=== PATIENT | female | born 1990 | race Two or more races ===

== ENCOUNTER → 2023-05-08 | Outpatient (CLI) | payer BC ==
[2023-05-08 10:34] LABS: Basophils # (auto) 0 10 ^3/uL (0-0.2); Basophils % (auto) 0.8 % (0.0-2.0); Eosinophils # (auto) 0 10 ^3/uL (0-0.8); Eosinophils % (auto) 1.1 % (0.0-7.0); Hematocrit 43.2 % (36.0-46.0); Hemoglobin 14.1 g/dL (12.2-16.2); Lymphocytes # (auto) 1.4 10 ^3/uL (0.4-5.4); Lymphocytes % (auto) 33.6 % (10.0-50.0); Mean Corpuscular Hemoglobin 30.4 pg (28.0-32.0); Mean Corpuscular Hgb Conc. 32.6 g/dL (32.0-36.0); Mean Corpuscular Volume 93.2 fL (80.0-100.0); Monocytes # (auto) 0.4 10 ^3/uL (0-1.3); Monocytes % (auto) 8.6 % (0.0-12.0); Neutrophils # (auto) 2.3 10 ^3/uL (1.6-8.6); Neutrophils % (auto) 55.9 % (37.0-80.0); Red Blood Cells 4.63 10^6/uL (4.0-5.20); Red Cell Distribution Width 12.6 % (11.8-14.3); White Blood Cell 4.2 10^3/uL (4.4-10.8)
[2023-05-08 10:44] LABS: Urine Bacteria NONE SEEN /hpf (None Seen); Urine Blood TRACE /uL (Negative); Urine Clarity HAZY (Clear); Urine Color Yellow (Yellow); Urine Protein, UAD TRACE (Negative); Urine Specific Gravity 1.019 (1.001-1.035); Urine Urobilinogen Normal (Negative); Urine WBC 1 /hpf (0 - 5); Urine pH 8.5 (5.0-8.0)
[2023-05-08 11:11] LABS: Alanine Aminotransferase 19 U/L (7-40); Alkaline Phosphatase 47 U/L (46-116); Anion Gap 4 (5-15); BUN/Creatinine Ratio 14.5 (10.0-20.0); Blood Urea Nitrogen 9 mg/dL (9-23); CRP High Sensitivity 0.18 mg/dL (<1.0); Calcium 9.3 mg/dL (8.5-10.1); Carbon Dioxide 32 mmol/L (20-30); Chloride 104 mmol/L (98-107); Glucose 78 mg/dL (74-106); Potassium 4.2 mmol/L (3.5-5.1); Sodium 140 mmol/L (136-145); Triglycerides 54 mg/dL (< 150)
[2023-05-08 11:12] LABS: Aspartate Aminotransferase 19 U/L (13-40); LDL Cholesterol 92 mg/dL (< 100)
[2023-05-08 11:13] LABS: Albumin 4.2 g/dL (3.2-4.8); Bilirubin, Total 1.4 mg/dL (0.2-1.0); Cholesterol 178 mg/dL (< 200); HDL Cholesterol 78 mg/dL (40-59); Total Protein 6.5 g/dL (5.7-8.2)
[2023-05-08 11:17] LABS: Erythrocyte Sedimentation Rate 8 mm/hr (0-20)
== END | disposition home or self-care (01) ==
LOC: LAB 09:37
PROVIDERS: ATTEND Internal Medicine
DX: Z00.01 Encounter for general adult medical examination with abnormal findings (principal); R55 Syncope and collapse; F17.200 Nicotine dependence, unspecified, uncomplicated
CPT/HCPCS: 36415; 80053; 80061; 81001; 83036; 84439; 84443; 85025; 85652; 86141

== ENCOUNTER → 2023-05-09 | Outpatient (CLI) | payer BC | END | disposition home or self-care (01) | LOC: XYW 15:48 | PROVIDERS: ATTEND Internal Medicine | DX: R55 Syncope and collapse (principal) | CPT/HCPCS: 93306 ==

== ENCOUNTER → 2023-07-18 | Outpatient (CLI) | payer BC ==
[2023-07-18 09:14] LABS: Basophils # (auto) 0 10 ^3/uL (0-0.2); Basophils % (auto) 0.5 % (0.0-2.0); Eosinophils # (auto) 0 10 ^3/uL (0-0.8); Eosinophils % (auto) 0.5 % (0.0-7.0); Hematocrit 41.3 % (36.0-46.0); Hemoglobin 13.9 g/dL (12.2-16.2); Lymphocytes # (auto) 1.3 10 ^3/uL (0.4-5.4); Lymphocytes % (auto) 17.9 % (10.0-50.0); Mean Corpuscular Hemoglobin 30.8 pg (28.0-32.0); Mean Corpuscular Hgb Conc. 33.6 g/dL (32.0-36.0); Mean Corpuscular Volume 91.6 fL (80.0-100.0); Monocytes # (auto) 0.5 10 ^3/uL (0-1.3); Monocytes % (auto) 6.6 % (0.0-12.0); Neutrophils # (auto) 5.4 10 ^3/uL (1.6-8.6); Neutrophils % (auto) 74.5 % (37.0-80.0); Red Blood Cells 4.51 10^6/uL (4.0-5.20); Red Cell Distribution Width 12.6 % (11.8-14.3); White Blood Cell 7.2 10^3/uL (4.4-10.8)
[2023-07-18 09:49] LABS: Amphetamine Screen, Urine Neg (NEGATIVE); Barbiturate Scree,Urine Neg (NEGATIVE); Cocaine Screen, Urine Neg (NEGATIVE)
[2023-07-18 09:50] LABS: Benzodiazephine Screen, Urine Neg (NEGATIVE); Cannabinoid Screen, Urine Neg (NEGATIVE); Opiate Scree,Urine Neg (NEGATIVE); Phencyclidine Screen, Urine Neg (NEGATIVE)
[2023-07-19 08:07] LABS: RPR Non Reactive (Non Reactive)
[2023-07-19 15:06] LABS: Chlamydia Trachomatis, NAA Negative (Negative); Neisseria gonorrhoeae, NAA Negative (Negative)
[2023-07-20 17:06] LABS: QuantiFERON-TB Gold Plus Negative (Negative)
== END | disposition home or self-care (01) ==
LOC: LAB 08:58
PROVIDERS: ATTEND Obstetrics & Gynecology
DX: Z34.00 Encounter for supervision of normal first pregnancy, unspecified trimester (principal); Z31.430 Encounter of female for testing for genetic disease carrier status for procreative management; Z36.0 Encounter for antenatal screening for chromosomal anomalies; Z3A.00 Weeks of gestation of pregnancy not specified
CPT/HCPCS: 36415; 80307; 83036; 84702; 85025; 86592; 86703; 86762; 86850; 86900; 86901; 87086; 87340

== ENCOUNTER → 2023-11-14 | Outpatient (CLI) | payer BC ==
[2023-11-14 07:34] LABS: Basophils # (auto) 0 10 ^3/uL (0-0.2); Basophils % (auto) 0.3 % (0.0-2.0); Eosinophils # (auto) 0 10 ^3/uL (0-0.8); Eosinophils % (auto) 0.4 % (0.0-7.0); Hematocrit 35.8 % (36.0-46.0); Hemoglobin 12.5 g/dL (12.2-16.2); Lymphocytes # (auto) 1.2 10 ^3/uL (0.4-5.4); Lymphocytes % (auto) 13.2 % (10.0-50.0); Mean Corpuscular Hemoglobin 32.6 pg (28.0-32.0); Mean Corpuscular Hgb Conc. 34.9 g/dL (32.0-36.0); Mean Corpuscular Volume 93.4 fL (80.0-100.0); Monocytes # (auto) 0.7 10 ^3/uL (0-1.3); Neutrophils # (auto) 7.3 10 ^3/uL (1.6-8.6); Neutrophils % (auto) 79.1 % (37.0-80.0); Platelet Count (auto) 146 10^3/uL (140-450); Red Blood Cells 3.84 10^6/uL (4.0-5.20); Red Cell Distribution Width 13.5 % (11.8-14.3); White Blood Cell 9.3 10^3/uL (4.4-10.8)
[2023-11-14 09:26] LABS: Alanine Aminotransferase 18 U/L (7-40); Alkaline Phosphatase 58 U/L (46-116); Anion Gap 6 (5-15); Blood Urea Nitrogen 8 mg/dL (9-23); Calcium 8.9 mg/dL (8.7-10.4); Carbon Dioxide 26 mmol/L (20-30); Chloride 103 mmol/L (98-107); Glucose 81 mg/dL (74-106); Potassium 3.6 mmol/L (3.5-5.1); Sodium 135 mmol/L (136-145)
[2023-11-14 09:27] LABS: Albumin 3.8 g/dL (3.2-4.8); Aspartate Aminotransferase 15 U/L (13-40); Bilirubin, Total 0.6 mg/dL (0.2-1.0); Total Protein 6.1 g/dL (5.7-8.2)
== END | disposition home or self-care (01) ==
LOC: LAB 07:11
PROVIDERS: ATTEND Obstetrics & Gynecology
DX: Z34.00 Encounter for supervision of normal first pregnancy, unspecified trimester (principal); Z3A.00 Weeks of gestation of pregnancy not specified
CPT/HCPCS: 36415; 80053; 82951; 83036; 85025; 87086

== ENCOUNTER → 2024-01-09 | Outpatient (CLI) | payer BC ==
[2024-01-09 12:05] LABS: Urine Bacteria None Seen /hpf (None Seen)
[2024-01-09 12:17] LABS: Hematocrit 34.4 % (36.0-46.0); Hemoglobin 11.6 g/dL (12.2-16.2); Mean Corpuscular Hemoglobin 30.3 pg (28.0-32.0); Mean Corpuscular Hgb Conc. 33.6 g/dL (32.0-36.0); Mean Corpuscular Volume 90.3 fL (80.0-100.0); Platelet Count (auto) 133 10^3/uL (140-450); Red Blood Cells 3.81 10^6/uL (4.0-5.20); Red Cell Distribution Width 14.6 % (11.8-14.3); White Blood Cell 9.2 10^3/uL (4.4-10.8)
[2024-01-09 12:21] LABS: Basophils % (manual) 0 (0.0-2.0); Blast Cells 0; Eosinophils % (manual) 0 (0-7); Metamyelocytes % 0; Myelocytes % 0; Promyelocytes % 0; Reactive Lymphocytes 0
[2024-01-09 12:34] LABS: Band Neutrophils % (manual) 5; Lymphocytes % (manual) 17 (10.0-50.0); Monocytes % (manual) 2 (0-12); Platelet Estimate Decreased
[2024-01-09 13:05] LABS: Urine Blood Negative /uL (Negative); Urine Clarity Clear (Clear); Urine Color Colorless (Yellow); Urine Protein, UAD Negative (Negative); Urine Specific Gravity 1.002 (1.001-1.035); Urine Urobilinogen Normal (Negative); Urine WBC <1 /hpf (0 - 5); Urine pH 6.5 (5.0-9.0)
[2024-01-10 07:07] LABS: RPR Non Reactive (Non Reactive)
[2024-01-11 06:07] LABS: Chlamydia Trachomatis, NAA Negative (Negative); Neisseria gonorrhoeae, NAA Negative (Negative)
== END | disposition home or self-care (01) ==
LOC: LAB 11:34
PROVIDERS: ATTEND Obstetrics & Gynecology
DX: Z34.00 Encounter for supervision of normal first pregnancy, unspecified trimester (principal)
CPT/HCPCS: 36415; 81001; 85007; 85027; 86592; 87086

== ENCOUNTER → 2024-01-16 | Outpatient (CLI) | payer BC ==
[2024-01-16 10:35] LABS: Alanine Aminotransferase 18 U/L (7-40); Albumin 3.6 g/dL (3.2-4.8); Alkaline Phosphatase 85 U/L (46-116); Anion Gap 8 (5-15); Aspartate Aminotransferase 15 U/L (13-40); Calcium 9.3 mg/dL (8.7-10.4); Carbon Dioxide 25 mmol/L (20-31); Chloride 105 mmol/L (98-107); Glucose 94 mg/dL (74-106); Potassium 3.5 mmol/L (3.5-5.1); Sodium 138 mmol/L (136-145)
[2024-01-16 10:36] LABS: Bilirubin, Total 0.5 mg/dL (0.2-1.0)
[2024-01-16 10:37] LABS: BUN/Creatinine Ratio 10.6 (10.0-20.0); Blood Urea Nitrogen < 5 mg/dL (9-23)
[2024-01-16 11:55] LABS: Total Protein 5.8 g/dL (5.7-8.2)
== END | disposition home or self-care (01) ==
LOC: LAB 09:53
PROVIDERS: ATTEND Obstetrics & Gynecology
DX: Z12.4 Encounter for screening for malignant neoplasm of cervix (principal); Z79.899 Other long term (current) drug therapy
CPT/HCPCS: 36415; 80053; 82306

== ENCOUNTER 2024-01-30 18:06 | Observation (INO) | payer BC ==
[~2024-01-30] VITALS: Ht 167.6 cm; Wt 92.5 kg
[2024-01-30] MEDS: ONDANSETRON HCL 4 MG/2 ML VIAL IV PRN (18:51)
[2024-01-30 19:17] LABS: Basophils # (auto) 0 10 ^3/uL (0-0.2); Basophils % (auto) 0.4 % (0.0-2.0); Eosinophils # (auto) 0 10 ^3/uL (0-0.8); Eosinophils % (auto) 0.1 % (0.0-7.0); Hematocrit 37.8 % (36.0-46.0); Hemoglobin 12.4 g/dL (12.2-16.2); Lymphocytes # (auto) 0.3 10 ^3/uL (0.4-5.4); Mean Corpuscular Hemoglobin 29.2 pg (28.0-32.0); Mean Corpuscular Volume 88.5 fL (80.0-100.0); Monocytes # (auto) 0.3 10 ^3/uL (0-1.3); Monocytes % (auto) 2.7 % (0.0-12.0); Neutrophils # (auto) 10.2 10 ^3/uL (1.6-8.6); Neutrophils % (auto) 93.8 % (37.0-80.0); Platelet Count (auto) 138 10^3/uL (140-450); Red Blood Cells 4.27 10^6/uL (4.0-5.20); Red Cell Distribution Width 15.8 % (11.8-14.3); White Blood Cell 10.9 10^3/uL (4.4-10.8)
[2024-01-30] MEDS: LACTATED RINGER'S 1,000 ML IV SCH (19:31)
[2024-01-30 19:35] LABS: Alanine Aminotransferase 15 U/L (7-40); Albumin 3.8 g/dL (3.2-4.8); Alkaline Phosphatase 93 U/L (46-116); Anion Gap 12 (5-15); Aspartate Aminotransferase 19 U/L (13-40); BUN/Creatinine Ratio 21.4 (10.0-20.0); Bilirubin, Total 1.1 mg/dL (0.2-1.0); Blood Urea Nitrogen 9 mg/dL (9-23); Calcium 9.2 mg/dL (8.7-10.4); Carbon Dioxide 22 mmol/L (20-31); Chloride 102 mmol/L (98-107); Glucose 89 mg/dL (74-106); Potassium 3.7 mmol/L (3.5-5.1)
[2024-01-30 19:44] LABS: Sodium 136 mmol/L (136-145)
--- NOTE | 2024-01-30 19:57 | DVH ---
OB ULTRASOUND, LIMITED CLINICAL INDICATION: labor TECHNIQUE: Multiple grayscale ultrasound and M-mode images were obtained of the pelvis for evaluation of intrauterine . COMPARISON: None FINDINGS: Profile: 06/04 breathin movements: 0 tone: 0 Amniotic fluid: 2 SANDEEP 15.2 cm heart rate 173 beats per minute Placenta anterior grade 1 without evidence of abruption. No nuchal cord. position vertex IMPRESSION: 1. Biophysical profile 06/04, with 0 score for movements and tone 2. Single living intrauterine . heart rate is 173 beats per minute
[2024-01-30] MEDS: ACETAMINOPHEN 500 MG TAB PO ONE (20:02)
[2024-01-30 20:24] LABS: INR 0.95 (0.9-1.15); Partial Thromboplastin Time 25.8 SEC (24.5-34.5); Prothrombin Time 10.1 sec (9.3-11.8)
[2024-01-30 20:24] LABS: Rapid Influenza A Negative (Negative); Rapid Influenza B Negative (Negative)
[2024-01-30] MEDS: LACTATED RINGER'S 1,000 ML IV ONE (20:53)
[2024-01-30 21:02] LABS: Urine Bacteria None Seen /hpf (None Seen)
[2024-01-30 21:52] LABS: Urine Blood Negative /uL (Negative); Urine Clarity Clear (Clear); Urine Color Yellow (Yellow); Urine Mucus FEW (None Seen); Urine Protein, UAD 1+ (Negative); Urine Specific Gravity 1.028 (1.001-1.035); Urine Urobilinogen Normal (Negative); Urine WBC 2 /hpf (0 - 5); Urine pH 5.5 (5.0-9.0)
[2024-01-30 22:11] LABS: COVID19 ANTIGEN SOFIA FIA NEGATIVE (NEGATIVE)
--- NOTE | 2024-01-30 23:51 | DVH ---
BIOPHYSICAL PROFILE HISTORY: repeat for 06/04 BPP score Comparison Study: 01/30/24 TECHNIQUE: Multiple real-time grayscale sonographic images through the gravid uterus of the fetus wi th duplex Doppler color flow and M-mode spectral analysis FINDINGS: BIOPHYSICAL PROFILE: breathing score: 2 movement score: 2 tone score: 2 Quantitative SANDEEP score: 2 (SANDEEP: 17.7 Cm.) Total score: 8 The cervix closed Single live fetus in vertex presentation. heart rate 180 beats per minute. placenta without previa or abruption Biophysical profile score 8 IMPRESSION: 1. Biophysical profile score: 8 2. No acute findings identified
[2024-01-31] MEDS ORDERED: ACETAMINOPHEN 500 MG TAB PO ONE (02:10)
--- NOTE | 2024-01-31 07:49 | DVHDS2 ---
Physician Discharge Progress N Final Diagnosis: vomiting ,nausea suspect food poisining dehydration resolved Secondary Diagnosis: pt wants to go home feeling much better insists going home Operations or Procedures: Operations or Procedures iv fluid,labs,flu test and covid testing initial bpp abn due to vomiting/food poisining and dehyrtaion but repeat bpp nl after hydration Condition on Discharge: Good Disposition: Home Discharge Instructions: Diet: Consistent carbohydrate Activity: No Restrictions, As Tolerated Follow Up/Referral: PT states she will see Dr. Hutchins today on 01/31/24. Medications: na Follow Up Care: Specialist: fu in am Discharge Statement: "Patient was advised to return to the ER or call 911 if any headaches, dizziness, shortness of breath, chest pain, abdominal pain, bleeding, fevers, or worsening of medical condition. Patient was counseled about treatment plan, medications, possible side effects, patientverbalized understanding. All questions were answered to the best of my ability. This discharge took greater then 30 minutes in planning, reviewing documentat ion, counseling the patient, and discussing with other team members." NORMA HUTCHINS DO Jan 31, 2024 07:49
== END 2024-01-31 02:05 | disposition home or self-care (01) ==
LOC: LDRP 18:06
PROVIDERS: ADMIT Obstetrics & Gynecology; ATTEND Obstetrics & Gynecology
DX: O21.8 Other vomiting complicating pregnancy (principal); Z20.822 Contact with and (suspected) exposure to COVID-19; O26.893 Other specified pregnancy related conditions, third trimester; R50.9 Fever, unspecified; Z3A.38 38 weeks gestation of pregnancy; Z79.899 Other long term (current) drug therapy; Z86.2 Personal history of diseases of the blood and blood-forming organs and certain disorders involving the immune mechanism
CPT/HCPCS: 36415; 59025; 76818; 80053; 81001; 81002; 85025; 85610; 85730; 86850; 86900; 86901; 87426; 87804; 94760; 94762; 96361; 96374; G0378; J2405; 96365; 96366

== ENCOUNTER 2024-02-06 08:18 | Inpatient (IN) | payer BC ==
[~2024-02-06] VITALS: Ht 167.6 cm; Wt 89.8 kg
[2024-02-06] MEDS ORDERED: DERMOPLAST 60ML BOTTLE TOP PRN (08:30)
[2024-02-06] MEDS ORDERED: BUTORPHANOL TARTRATE 2 MG/1 ML VIAL IV PRN ×2 (08:30)
[2024-02-06] MEDS ORDERED: LIDOCAINE 2%HCL (LOCAL ANESTH.) INJ 20ML MDV IJ PRN (08:30)
[2024-02-06] MEDS ORDERED: WITCH HAZEL-GLYCERIN PAD TOP PRN (08:30)
[2024-02-06] MEDS ORDERED: LACT. RINGERS/OXYTOCIN 20UNITS 500 ML IV ONE ×2 (08:30→09:00)
[2024-02-06] MEDS ORDERED: PHISODERM TOP SOLN 240ML BTL TOP PRN (08:30)
[2024-02-06 09:05] LABS: Basophils # (auto) 0 10 ^3/uL (0-0.2); Basophils % (auto) 0.3 % (0.0-2.0); Eosinophils # (auto) 0 10 ^3/uL (0-0.8); Eosinophils % (auto) 0.4 % (0.0-7.0); Hematocrit 35.1 % (36.0-46.0); Hemoglobin 11.8 g/dL (12.2-16.2); Lymphocytes # (auto) 1.3 10 ^3/uL (0.4-5.4); Lymphocytes % (auto) 13.6 % (10.0-50.0); Mean Corpuscular Hemoglobin 29.6 pg (28.0-32.0); Mean Corpuscular Hgb Conc. 33.6 g/dL (32.0-36.0); Monocytes # (auto) 0.5 10 ^3/uL (0-1.3); Monocytes % (auto) 5.1 % (0.0-12.0); Neutrophils # (auto) 7.5 10 ^3/uL (1.6-8.6); Neutrophils % (auto) 80.6 % (37.0-80.0); Nucleated Red Blood Cells % 0.1 %; Platelet Count (auto) 147 10^3/uL (140-450); Red Blood Cells 3.99 10^6/uL (4.0-5.20); White Blood Cell 9.3 10^3/uL (4.4-10.8)
[2024-02-06 09:06] LABS: Urine Bacteria None Seen /hpf (None Seen)
[2024-02-06 09:17] LABS: INR 0.96 (0.9-1.15); Prothrombin Time 10.2 sec (9.3-11.8)
[2024-02-06 09:17] LABS: Urine Blood Negative /uL (Negative); Urine Clarity Clear (Clear); Urine Color Light-Yellow (Yellow); Urine Protein, UAD Negative (Negative); Urine Urobilinogen Normal (Negative); Urine WBC <1 /hpf (0 - 5); Urine pH 6.5 (5.0-9.0)
[2024-02-06 09:18] LABS: Alanine Aminotransferase 34 U/L (7-40); Albumin 3.5 g/dL (3.2-4.8); Alkaline Phosphatase 89 U/L (46-116); Anion Gap 8 (5-15); Aspartate Aminotransferase 30 U/L (13-40); BUN/Creatinine Ratio 11.5 (10.0-20.0); Bilirubin, Total 0.6 mg/dL (0.2-1.0); Calcium 9.4 mg/dL (8.7-10.4); Carbon Dioxide 24 mmol/L (20-31); Chloride 105 mmol/L (98-107); Potassium 3.8 mmol/L (3.5-5.1); Sodium 137 mmol/L (136-145); Total Protein 5.7 g/dL (5.7-8.2)
[2024-02-06 09:20] LABS: Blood Urea Nitrogen 6 mg/dL (9-23); Glucose 115 mg/dL (74-106)
[2024-02-06 09:26] LABS: Amphetamine Screen, Urine Neg (NEGATIVE); Barbiturate Scree,Urine Neg (NEGATIVE); Benzodiazephine Screen, Urine Neg (NEGATIVE); Cannabinoid Screen, Urine Neg (NEGATIVE); Cocaine Screen, Urine Neg (NEGATIVE); Opiate Scree,Urine Neg (NEGATIVE); Phencyclidine Screen, Urine Neg (NEGATIVE)
[2024-02-06] MEDS: miSOPROStol 50 MCG per PRE-CUT 1/2 TAB PO PRN (09:36)
[2024-02-06] MEDS: LACTATED RINGER'S 1,000 ML IV SCH (09:37)
--- NOTE | 2024-02-06 12:57 | DVHPN2 ---
Chief Complaints Patient reports: No new complaints Nursing reports: No new complaints Objective Medications Current Medications Medications (Trade) Dose Ordered Sig/Cirilo Route PRN Reason Start Time Stop Time Status Last Admin Benzocaine (Dermoplast) 1 applic PRN PRN TOP PERINEAL AREA DISCOMFORT 02/06/24 08:30 Butorphanol Tartrate (Stadol Injection) 1 mg Q4HPRN PRN IV MODERATE PAIN (4-6 PAIN SCALE) 02/06/24 08:30 Butorphanol Tartrate (Stadol Injection) 2 mg Q4HPRN PRN IV SEVERE PAIN (7-10 PAIN SCALE) 02/06/24 08:30 Lactated Ringer's 1,000 ml @ 125 mls/hr Q8H IV 02/06/24 08:30 02/06/24 09:37 Lidocaine HCl (Xylocaine) 20 ml ONCE PRN IJ PERINEAL AREA DISCOMFORT 02/06/24 08:30 Misoprostol (Cytotec) 50 mcg Q4HPRN PRN PO CERVICAL RIPENING 02/06/24 08:30 02/06/24 09:36 Sodium Lauryl Sulfate (Phisoderm) 240 ml PRN PRN TOP PERINEAL AREA DISCOMFORT 02/06/24 08:30 Witch Florecita (Tucks) 1 pad PRN PRN TOP PERINEAL AREA DISCOMFORT 02/06/24 08:30 Others ve-ft/high/thick Studies Laboratory Tests 02/06/24 08:37 Test 02/06/24 08:37 Range/Units Serum Glucose 115 H 74-106 mg/dL Ass/Plan Assessment iol Plan rec one cytotec informed consent obtained NORMA GUNN DO Feb 06, 2024 12:57
--- NOTE | 2024-02-06 15:32 | DVHHP2 ---
OB CC & HPI Date Date of Admission: Feb 06, 2024 Patient Identification: : 1 Para: 0 EDC: Feb 11, 2024 EGA: 39.2 Chief Complaints: Reason for admission: induction of labor Indication for induction: maternal discomfort, other (elective) History of Present Complaints 33yo IUP@39.2wks presents for scheduled IOL. Denies UCs/LOF/VB/LAWSON/vision changes/RUQ pain. Endorses +FM. PNC: Routine PNC at [facility] OB, adequate visits, PNC uncomplicated. GTT wnl, dating based on LMP c/w 10wk sono, GBS positive. Past Medical History Cardiac: No pertinent Hx Pulmonary: No pertinent Hx Central Nervous System: No pertinent Hx GI: No pertinent Hx Hemotology/Oncology: No pertinent Hx Hepatobiliary: No pertinent Hx Psychiatric: No pertinent Hx Musculoskeletal: No pertinent Hx Rheumotologic: No pertinent Hx Infectious Disease: No peritnent Hx ENT: No pertinent Hx Renal/: No pertinent Hx Endocrine: No pertinent Hx Dermatology: No pertinent Hx Past Surgical History: No pertinent Hx OB History OB History Care: Good Care Ultrasounds: Normal mid trimester US Obstetrical Complications: None Medical Complications: None Allergies: Coded Allergies: NO KNOWN ALLERGIES (Unverified , 01/30/24) Home Meds PNV Current Medications Current Medications Medications (Trade) Dose Ordered Sig/Cirilo Route PRN Reason Start Time Stop Time Status Last Admin Lactated Ringer's 1,000 ml @ 125 mls/hr Q8H IV 02/06/24 08:30 02/06/24 09:37 Witch Florecita (Tucks) 1 pad PRN PRN TOP PERINEAL AREA DISCOMFORT 02/06/24 08:30 Sodium Lauryl Sulfate (Phisoderm) 240 ml PRN PRN TOP PERINEAL AREA DISCOMFORT 02/06/24 08:30 Benzocaine (Dermoplast) 1 applic PRN PRN TOP PERINEAL AREA DISCOMFORT 02/06/24 08:30 Butorphanol Tartrate (Stadol Injection) 1 mg Q4HPRN PRN IV MODERATE PAIN (4-6 PAIN SCALE) 02/06/24 08:30 Butorphanol Tartrate (Stadol Injection) 2 mg Q4HPRN PRN IV SEVERE PAIN (7-10 PAIN SCALE) 02/06/24 08:30 Misoprostol (Cytotec) 50 mcg Q4HPRN PRN PO CERVICAL RIPENING 02/06/24 08:30 02/06/24 09:36 Lidocaine HCl (Xylocaine) 20 ml ONCE PRN IJ PERINEAL AREA DISCOMFORT 02/06/24 08:30 Family & Social History Family/Social History Past Family/Social History: denies Blood Type: O+ Rubella: immune RPR/VDRL: Negative GBS Status: Positive HBsAG: Negative Review of Systems Constitutional: No symptom reported Ears, Nose, & Throat: No symptom reported Eyes: No symptom reported Pulmonary/Respiratory: No symptom reported Cardiovascular: No symptom reported Gastrointestinal: No symptom reported Genitourinary: No symptom reported Musculoskeletal: No symptom reported Skin: No symptom reported Psychiatric: No symptom reported Endocrine: No symptom reported Hemotologic/Lymphatic: No symptom reported OB Admission Exam Physical Exam Vitals: VSS, see chart HEENT: TMs Normal, Fontanelles Normal, Nasal Mucosa Normal, Eyes non-injected, Oropharynx Normal, PERRLA, Moist Membranes, EOMI Heart: Rhythm Normal Lungs: Clear Abdomen: Gravid Extremities: Normal Reflexes: Normal Pelvic Exam: SVE by RN: closed/thick/high Membranes: Intact Heart Rate: 140's Accelerations: Accelerations Present Decelerations: No Decelerations Group Home Variability: Average (6-25) Frequency of Contractions: irregular Intensity: Mild OB Plan Plan Admitting Diagnosis: Induction of labor Plan: Induction Induction Methd: Misoprostol protocol Other Plan: A: 33yo IUP@39.2wks Induction of Labor Category I EFM Intact Membranes GBS positive P: Admit to L&D Informed consent obtained Discussed risks, benefits, alternatives of IOL with pt. Pt consents to IOL with PO cytotec. Start IV PCN when in active labor or ROM. monitoring per order Routine labs ordered Pain mgmt PRN Frequent position changes in and out of bed encouraged Limit SVE unless necessary Intrauterine resuscitation PRN Anticipate CNGriselda is co-managing care with Dr. Hutchins. CLAYTON GUNN CNM Feb 06, 2024 15:32
--- NOTE | 2024-02-06 15:47 | DVHPN2 ---
Chief Complaints Patient reports: No new complaints Nursing reports: No new complaints Objective Medications Current Medications Medications (Trade) Dose Ordered Sig/Cirilo Route PRN Reason Start Time Stop Time Status Last Admin Benzocaine (Dermoplast) 1 applic PRN PRN TOP PERINEAL AREA DISCOMFORT 02/06/24 08:30 Butorphanol Tartrate (Stadol Injection) 1 mg Q4HPRN PRN IV MODERATE PAIN (4-6 PAIN SCALE) 02/06/24 08:30 Butorphanol Tartrate (Stadol Injection) 2 mg Q4HPRN PRN IV SEVERE PAIN (7-10 PAIN SCALE) 02/06/24 08:30 Lactated Ringer's 1,000 ml @ 125 mls/hr Q8H IV 02/06/24 08:30 02/06/24 09:37 Lidocaine HCl (Xylocaine) 20 ml ONCE PRN IJ PERINEAL AREA DISCOMFORT 02/06/24 08:30 Misoprostol (Cytotec) 50 mcg Q4HPRN PRN PO CERVICAL RIPENING 02/06/24 08:30 02/06/24 09:36 Sodium Lauryl Sulfate (Phisoderm) 240 ml PRN PRN TOP PERINEAL AREA DISCOMFORT 02/06/24 08:30 Witch Florecita (Tucks) 1 pad PRN PRN TOP PERINEAL AREA DISCOMFORT 02/06/24 08:30 Others ve-unchanged Studies Laboratory Tests 02/06/24 08:37 Test 02/06/24 08:37 Range/Units Serum Glucose 115 H 74-106 mg/dL Ass/Plan Assessment iol Plan rec 2 cytotec NORMA GUNN DO Feb 06, 2024 15:47
[2024-02-06] MEDS: DINOPROSTONE 10MG VAG SUPP PV ONE (18:03)
--- NOTE | 2024-02-06 18:35 | DVHPN2 ---
CNM Labor Progress Note Date and Time Seen Date Seen: Feb 06, 2024 Time Seen: 17:58 Subjective Patient reports: No new complaints Subjective Comment Pt denies pain, does not feel the UCs, only abdominal tightening. Pt consents to cervidil. Objective Vital Signs VSS, see chart Monitoring Method Monitoring Method: External Heart Rate Heart Rate Baseline: 130 Heart Rate Variability: Moderate Presence of FHR Accelerations: Yes Presence of FHR Decelerations: No Are all 5 Components of the FH: Yes Contractions Contractions Frequency: Other (q2-3 min) Duration of Contraction: 70 Contractions Intensity: Mild Contractions Resting Tone: Relaxed Membranes Membranes: Intact Vaginal Exam Vag Exam Deferred: No (cervidil placed horizontally at the posterior fornix of the cervix) Vaginal Exam Dilation: 0 Vaginal Exam Effacement: 0 Vaginal Exam Station: -2 Vaginal Exam Presentation: VTX Vaginal Exam Show: None Medications Medications - Pitocin: No Medications - Pain Medications: PRN Medication - Epidural: No Medication - Other 1 dose of PO cytotec received Lab Results Lab Results Current Medications Medications (Trade) Dose Ordered Sig/Cirilo Start Time Stop Time Status Last Admin Dose Admin Lactated Ringer's 1,000 ml @ 125 mls/hr Q8H 02/06/24 08:30 02/06/24 09:37 125 MLS/HR Witch Florecita (Tucks) 1 pad PRN PRN 02/06/24 08:30 Sodium Lauryl Sulfate (Phisoderm) 240 ml PRN PRN 02/06/24 08:30 Benzocaine (Dermoplast) 1 applic PRN PRN 02/06/24 08:30 Butorphanol Tartrate (Stadol Injection) 1 mg Q4HPRN PRN 02/06/24 08:30 Butorphanol Tartrate (Stadol Injection) 2 mg Q4HPRN PRN 02/06/24 08:30 Misoprostol (Cytotec) 50 mcg Q4HPRN PRN 02/06/24 08:30 02/06/24 09:36 50 MCG Lidocaine HCl (Xylocaine) 20 ml ONCE PRN 02/06/24 08:30 Oxytocin 500 ml @ 999 mls/hr Q31M ONCE 02/06/24 08:30 02/06/24 09:00 DC Oxytocin 500 ml @ 125 mls/hr Q4H ONCE 02/06/24 09:00 02/06/24 12:59 DC Dinoprostone (Cervidil Suppository) 1 supp ONCE ONCE 02/06/24 16:45 02/06/24 17:32 DC 02/06/24 18:03 1 SUPP Polyethylene Glycol (Miralax 17GM Powder) 17 gm DAILYPRN PRN 02/06/24 22:45 UNV Docusate Sodium (Colace Capsule) 200 mg DAILYPRN PRN 02/06/24 22:45 UNV Laboratory Tests Test 02/06/24 09:37 02/06/24 08:45 02/06/24 08:37 Range/Units Treponema pallidum Ab (TP-PA) Pending Urine Color Light-yellow Yellow Urine Clarity Clear Clear Urine pH 6.5 5.0-9.0 Urine Specific [place] 1.010 1.001-1.035 Urine Protein Negative Negative Urine Ketones Negative Negative Urine Blood Negative Negative /uL Urine Nitrite Negative Negative Urine Bilirubin Negative Negative Urine Urobilinogen Normal Negative mg/dL Urine Leukocyte Esterase Negative Negative /uL Urine RBC <1 0 - 4 /hpf Urine WBC <1 0 - 5 /hpf Urine Squamous Epithelial Cells Few <5 /hpf Urine Bacteria None seen None Seen /hpf Urine Glucose Normal Normal mg/dL Urine Opiates Screen Neg NEGATIVE Urine Fentanyl Screen Neg NEGATIVE Urine Barbiturates Screen Neg NEGATIVE Urine Phencyclidine Screen Neg NEGATIVE Urine Amphetamines Screen Neg NEGATIVE Urine Benzodiazepines Screen Neg NEGATIVE Urine Cocaine Screen Neg NEGATIVE Urine Cannabinoids Screen Neg NEGATIVE White Blood Count 9.3 4.4-10.8 10^3/uL Red Blood Count 3.99 L 4.0-5.20 10^6/uL Hemoglobin 11.8 L 12.2-16.2 g/dL Hematocrit 35.1 L 36.0-46.0 % Mean Corpuscular Volume 88.0 80.0-100.0 fL Mean Corpuscular Hemoglobin 29.6 28.0-32.0 pg Mean Corpuscular Hemoglobin Concent 33.6 32.0-36.0 g/dL Red Cell Distribution Width 16.0 H 11.8-14.3 % Platelet Count 147 140-450 10^3/uL Mean Platelet Volume 9.0 6.9-10.8 fL Neutrophils (%) (Auto) 80.6 H 37.0-80.0 % Lymphocytes (%) (Auto) 13.6 10.0-50.0 % Monocytes (%) (Auto) 5.1 0.0-12.0 % Eosinophils (%) (Auto) 0.4 0.0-7.0 % Basophils (%) (Auto) 0.3 0.0-2.0 % Neutrophils # (Auto) 7.5 1.6-8.6 10 ^3/uL Lymphocytes # (Auto) 1.3 0.4-5.4 10 ^3/uL Monocytes # (Auto) 0.5 0-1.3 10 ^3/uL Eosinophils # (Auto) 0 0-0.8 10 ^3/uL Basophils # (Auto) 0 0-0.2 10 ^3/uL Nucleated Red Blood Cells 0.1 % Prothrombin Time 10.2 9.3-11.8 sec Prothrombin Time INR 0.96 0.9-1.15 Activated Partial Thromboplast Time 26.0 24.5-34.5 SEC Sodium Level 137 136-145 mmol/L Potassium Level 3.8 3.5-5.1 mmol/L Chloride Level 105 98-107 mmol/L Carbon Dioxide Level 24 20-31 mmol/L Anion Gap 8 5-15 Blood Urea Nitrogen 6 L 9-23 mg/dL Creatinine 0.52 L 0.550-1.02 mg/dL Glomerular Filtration Rate Calc 126 >90 mL/min BUN/Creatinine Ratio 11.5 10.0-20.0 Serum Glucose 115 H 74-106 mg/dL Calcium Level 9.4 8.7-10.4 mg/dL Total Bilirubin 0.6 0.2-1.0 mg/dL Aspartate Amino Transferase (AST) 30 13-40 U/L Alanine Aminotransferase (ALT) 34 7-40 U/L Alkaline Phosphatase 89 46-116 U/L Total Protein 5.7 5.7-8.2 g/dL Albumin 3.5 3.2-4.8 g/dL Rapid Plasma Reagin Pending Hepatitis C Antibody Negative Negative Assessment Assessment 33yo IUP@39.2wks Induction of Labor Category I EFM Intact Membranes GBS positive Plan Plan Plan to keep cervidil in place for 12 hours unless tachysystole or distress Start IV PCN when in active labor or ROM. monitoring per order Pain mgmt PRN Frequent position changes in and out of bed encouraged Limit SVE unless necessary Intrauterine resuscitation PRN Anticipate ROXI is co-managing care with Dr. Hutchins. Plan discussed with: Patient JUANRAMONACLAYTON DIANE Feb 06, 2024 18:35
[2024-02-06] MEDS: POLYETHYLENE GLYCOL 17 GM PWDR PO PRN (23:02)
--- NOTE | 2024-02-07 01:55 | DVHPN2 ---
Chief Complaints Patient reports: No new complaints Nursing reports: No new complaints Objective Vitals VSS Medications Current Medications Medications (Trade) Dose Ordered Sig/Cirilo Route PRN Reason Start Time Stop Time Status Last Admin Benzocaine (Dermoplast) 1 applic PRN PRN TOP PERINEAL AREA DISCOMFORT 02/06/24 08:30 Butorphanol Tartrate (Stadol Injection) 1 mg Q4HPRN PRN IV MODERATE PAIN (4-6 PAIN SCALE) 02/06/24 08:30 Butorphanol Tartrate (Stadol Injection) 2 mg Q4HPRN PRN IV SEVERE PAIN (7-10 PAIN SCALE) 02/06/24 08:30 Docusate Sodium (Colace Capsule) 200 mg DAILYPRN PRN PO FOR CONSTIPATION 02/06/24 22:45 Lactated Ringer's 1,000 ml @ 125 mls/hr Q8H IV 02/06/24 08:30 02/06/24 09:37 Lidocaine HCl (Xylocaine) 20 ml ONCE PRN IJ PERINEAL AREA DISCOMFORT 02/06/24 08:30 Misoprostol (Cytotec) 50 mcg Q4HPRN PRN PO CERVICAL RIPENING 02/06/24 08:30 02/06/24 09:36 Polyethylene Glycol (Miralax 17GM Powder) 17 gm DAILYPRN PRN PO FOR CONSTIPATION 02/06/24 22:45 02/06/24 23:02 Sodium Lauryl Sulfate (Phisoderm) 240 ml PRN PRN TOP PERINEAL AREA DISCOMFORT 02/06/24 08:30 Witch Florecita (Tucks) 1 pad PRN PRN TOP PERINEAL AREA DISCOMFORT 02/06/24 08:30 Comment Cervidil still in place from 1758 Category I EFM (FHR 120s, moderate variability, +accels, -decels) UCs q2-4 min Studies Laboratory Tests 02/06/24 08:37 Test 02/06/24 08:37 Range/Units Serum Glucose 115 H 74-106 mg/dL Ass/Plan Assessment IOL Plan Continue with cervidil, plan to remove at 12 hours (0558) CLAYTON GUNN CNM Feb 07, 2024 01:55
[2024-02-07] MEDS: DOCUSATE SOD 100 MG CAP PO PRN (05:17)
[2024-02-07] MEDS ORDERED: METHYLERGONOVINE MALEATE 0.2 MG/ML AMP IM PRN (06:30)
[2024-02-07] MEDS ORDERED: LACT. RINGERS/OXYTOCIN 20UNITS 500 ML IV ONE ×2 (06:30→07:00)
--- NOTE | 2024-02-07 07:55 | DVHPN2 ---
Chief Complaints Patient reports: No new complaints Nursing reports: No new complaints Objective Medications Current Medications Medications (Trade) Dose Ordered Sig/Cirilo Route PRN Reason Start Time Stop Time Status Last Admin Benzocaine (Dermoplast) 1 applic PRN PRN TOP PERINEAL AREA DISCOMFORT 02/06/24 08:30 Butorphanol Tartrate (Stadol Injection) 1 mg Q4HPRN PRN IV MODERATE PAIN (4-6 PAIN SCALE) 02/06/24 08:30 Butorphanol Tartrate (Stadol Injection) 2 mg Q4HPRN PRN IV SEVERE PAIN (7-10 PAIN SCALE) 02/06/24 08:30 Docusate Sodium (Colace Capsule) 200 mg DAILYPRN PRN PO FOR CONSTIPATION 02/06/24 22:45 02/07/24 05:17 Lactated Ringer's 1,000 ml @ 125 mls/hr Q8H IV 02/06/24 08:30 02/06/24 09:37 Lidocaine HCl (Xylocaine) 20 ml ONCE PRN IJ PERINEAL AREA DISCOMFORT 02/06/24 08:30 Methylergonovine Maleate (Methergine) 0.2 mg Q8HP PRN IM POST HEMORRHAGE 02/07/24 06:30 02/09/24 06:29 Misoprostol (Cytotec) 50 mcg Q4HPRN PRN PO CERVICAL RIPENING 02/06/24 08:30 02/06/24 09:36 Polyethylene Glycol (Miralax 17GM Powder) 17 gm DAILYPRN PRN PO FOR CONSTIPATION 02/06/24 22:45 02/06/24 23:02 Sodium Lauryl Sulfate (Phisoderm) 240 ml PRN PRN TOP PERINEAL AREA DISCOMFORT 02/06/24 08:30 Witch Florecita (Tucks) 1 pad PRN PRN TOP PERINEAL AREA DISCOMFORT 02/06/24 08:30 Others ve- refused Studies Laboratory Tests 02/06/24 08:37 Test 02/06/24 08:37 Range/Units Serum Glucose 115 H 74-106 mg/dL Ass/Plan Assessment iol Plan pt declined continuing with induction pt wants to go home they refused monitoring ,will need nst/bpp on monday NORMA GUNN Feb 07, 2024 07:55
--- NOTE | 2024-02-07 07:56 | DVHDS2 ---
Physician Discharge Progress N Final Diagnosis: term preg declined induction Operations or Procedures: Operations or Procedures pt wants to be dc home Condition on Discharge: Good Disposition: Home Discharge Instructions: Diet: Regular Activity: No Restrictions, As Tolerated Follow Up/Referral: RETURN TO BIRTHPLACE ON 02/11/24 @ 1000 AM FOR NST/BPP Medications: na Follow Up Care: Specialist: fu on monday Discharge Statement: "Patient was advised to return to the ER or call 911 if any headaches, dizziness, shortness of breath, chest pain, abdominal pain, bleeding, fevers, or worsening of medical condition. Patient was counseled about treatment plan, medications, possible side effects, patientverbalized understanding. All questions were answered to the best of my ability. This discharge took greater then 30 minutes in planning, reviewing documentation, counseling the patient, and discussing with other team members." NORMA GUNN DO Feb 07, 2024 07:56
[2024-02-07 08:06] LABS: RPR Non Reactive (Non Reactive)
== END 2024-02-07 07:23 | disposition home or self-care (01) | DRG 833 ==
LOC: LDRP 08:18
PROVIDERS: ADMIT Obstetrics & Gynecology; ATTEND Obstetrics & Gynecology
DX: O99.820 Streptococcus B carrier state complicating pregnancy (principal); Z3A.39 39 weeks gestation of pregnancy
CPT/HCPCS: 36415; 59025; 80053; 80307; 81001; 85025; 85610; 85730; 86592; 86780; 86803; 86850; 86900; 86901; 94762; 96360; 96361; G0378

== ENCOUNTER 2024-02-11 09:56 | Observation (INO) | payer BC ==
--- NOTE | 2024-02-11 11:17 | DVH ---
CLINICAL HISTORY: Term . COMPARISON: US BIOPHYSICAL PROFILE on DOS: 01/30/24, US BIOPHYSICAL PROFILE on DOS: 01/30/24 TECHNIQUE: biophysical profile was performed. Transabdominal sonographic images of the fetus we re obtained. FINDINGS: The fetus is in cephalic position. heart rate measures 145 BPM. Amniotic fluid index measures 18.7 cm. The placenta is anterior in position. BPP profile is an overall score of 8/8, with 2/2 points for breathing, with at least one episode of breathing over a 30 second duration during a 30 minute observation, 2/2 points for m ovements, with 3 or more discrete body or limb movements, 2/2 points for tone, with one or more episodes of extremity extension with return to flexion, or opening and closing of hand, and 2/ 2 points for amniotic fluid, with at least 1 pocket of amniotic fluid that measures 2 cm in 2 perpend icular planes. IMPRESSION: BPP score of 8/8.
--- NOTE | 2024-02-11 16:48 | DVHDS2 ---
Physician Discharge Progress N Final Diagnosis: IUP 40+ wk Secondary Diagnosis: Encounter for surveillance Operations or Procedures: Operations or Procedures NST/BPP SANDEEP all WNL, status reassuring NOT in labor PATIENT: KATE SALAS ACCT: [id number] UNIT: [id number] : 1990 LOC: [facility] ROOM / BED: TRIAGE3 / A AGE / SEX: 33 / F ADM STATUS: ADM IN SERVICE 1008 ORDERING PHYSICIAN: LOTTIE NAJERA DO PROCEDURE(s): BPP - BIOPHYSICAL PROFILE REASON: Term ORDER NUMBER(s): [id number], ACCESSION NUMBER(s): [id number] CLINICAL HISTORY: Term . COMPARISON: US BIOPHYSICAL PROFILE on DOS: 01/30/24, US BIOPHYSICAL PROFILE on DOS: 01/30/24 TECHNIQUE: biophysical profile was performed. Transabdominal sonographic images of the fetus were obtained. FINDINGS: The fetus is in cephalic position. heart rate measures 145 BPM. Amniotic fluid index measures 18.7 cm. The placenta is anterior in position. BPP profile is an overall score of 8/8, with 2/2 points for breathing, with at least one episode of breathing over a 30 second duration during a 30 minute observation, 2/2 points for movements, with 3 or more discrete body or limb movements, 2/2 points for tone, with one or more episodes of extremity extension with return to flexion, or opening and closing of hand, and 2/2 points for amniotic fluid, with at least 1 pocket of amniotic fluid that measures 2 cm in 2 perpendicular planes. IMPRESSION: BPP score of 8/8. ATED BY: TAJ SURESH DO DICTATED DATE/TIME: 02/11/24 1114 Condition on Discharge: Stable Disposition: Home Discharge Instructions: Diet: Regular Activity: Light activity Follow Up/Referral: As scheduled 2x/wk NST/BPP until delivered Labor precautions. F/U w/ Dr. Hutchins this week Medications: N/A Follow Up Care: Discharge Statement: "Patient was advised to return to the ER or call 911 if any headaches, dizziness, shortness of breath, chest pain, abdominal pain, bleeding, fevers, or worsening of medical condition. Patient was counseled about treatment plan, medications, possible side effects, patientverbalized understanding. All questions were answered to the best of my ability. This discharge took greater then 30 minutes in planning, reviewing documentation, counseling the patient, and discussing with other team members." LOTTIE NAJERA DO Feb 11, 2024 16:48
== END 2024-02-11 11:37 | disposition home or self-care (01) ==
LOC: LDRP 09:56
PROVIDERS: ADMIT Obstetrics & Gynecology; ATTEND Obstetrics & Gynecology
DX: O48.0 Post-term pregnancy (principal); Z3A.40 40 weeks gestation of pregnancy; Z79.899 Other long term (current) drug therapy
CPT/HCPCS: 59025; 76818; 81002; 94760; G0378

== ENCOUNTER 2024-02-13 09:00 | Observation (INO) | payer BC ==
--- NOTE | 2024-02-13 10:14 | DVH ---
Procedure: US BIOPHYSICAL PROFILE 02/13/2024 09:22 AM Indication: Post dates Comparison: US BIOPHYSICAL PROFILE on DOS: 02/11/24, US BIOPHYSICAL PROFILE on DOS: 01/30/24, US BIOPH YSICAL PROFILE on DOS: 01/30/24 Technique: Sonogram of gravid uterus utilizing grayscale and color techniques. FINDINGS: Single living intrauterine gestation. Presentation: Cephalic Placenta: Anterior heart rate: 142 bpm SANDEEP: 20 cm, DVP: 8 cm Maternal cervix: Not visualized Biophysical Profile: breathing score: 2 movement score: 2 tone: 2 Quantitative SANDEEP score: 2 Total score: 8/8 IMPRESSION: 1. Single living as above. 2. Biophysical profile score: 8/8.
--- NOTE | 2024-02-14 07:33 | DVHDS2 ---
Physician Discharge Progress N Final Diagnosis: postdates Operations or Procedures: Operations or Procedures nst,meghna Consultations: Consultations pt refused induction last wk left 2nd day of induction ,i have explained that the efw of this baby is around 9lbs and recommended pcs to which they refused.pt will go to the office for efw now Condition on Discharge: Good Disposition: Home Discharge Instructions: Diet: Regular Activity: No Restrictions, As Tolerated Medications: na Follow Up Care: Specialist: pt will go to my office for efw and wants to fu in 2days in ob unit Discharge Statement: "Patient was advised to return to the ER or call 911 if any headaches, dizziness, shortness of breath, chest pain, abdominal pain, bleeding, fevers, or worsening of medical condition. Patient was counseled about treatment plan, medications, possible side effects, patientverbalized understanding. All questions were answered to the best of my ability. This discharge took greater then 30 minutes in planning, reviewing documentation, counseling the patient, and discussing with other team members." NORMA GUNN DO Feb 14, 2024 07:32
== END 2024-02-13 10:48 | disposition home or self-care (01) ==
LOC: LDRP 09:00
PROVIDERS: ADMIT Obstetrics & Gynecology; ATTEND Obstetrics & Gynecology
DX: O48.0 Post-term pregnancy (principal); Z3A.40 40 weeks gestation of pregnancy; Z79.899 Other long term (current) drug therapy
CPT/HCPCS: 59025; 76818; 81002; 94760; G0378

== ENCOUNTER 2024-02-15 10:56 | Observation (INO) | payer BC ==
--- NOTE | 2024-02-15 12:37 | DVH ---
BIOPHYSICAL PROFILE HISTORY: MACRO TECHNIQUE: Multiple transabdominal real-time grayscale sonographic images through the gravid uterus of the fetus with duplex Doppler color flow and M-mode spectral analysis FINDINGS: BIOPHYSICAL PROFILE: breathing score: 2 movement score: 2 tone score: 2 Quantitative SANDEEP score: 2 (SANDEEP: 20.4 Cm. MVP 7.8 cm ) Total score: 8/8 Single live fetus in cephalic presentation. heart rate 167 beats per minute. Anterior placenta without previa or abruption IMPRESSION: 1. Biophysical profile score: 8/8 HS:Y
[2024-02-16] MEDS ORDERED: HYDR-4072 PO (10:40)
[2024-02-16] MEDS ORDERED: DOCU-94 PO (10:40)
[2024-02-16] MEDS ORDERED: IBUP-1456 PO (10:40)
[2024-02-16] MEDS ORDERED: ZOFR4T PO (10:40)
--- NOTE | 2024-02-16 12:12 | DVHDS2 ---
Physician Discharge Progress N Final Diagnosis: postdates,macrosmia Operations or Procedures: Operations or Procedures nst,sono Condition on Discharge: Good Disposition: Home Discharge Instructions: Diet: Regular Activity: No Restrictions, As Tolerated Medications: na Follow Up Care: Specialist: 1d Discharge Statement: "Patient was advised to return to the ER or call 911 if any headaches, dizziness, shortness of breath, chest pain, abdominal pain, bleeding, fevers, or worsening of medical condition. Patient was counseled about treatment plan, medications, possible side effects, patientverbalized understanding. All questions were answered to the best of my ability. This discharge took greater then 30 minutes in planning, reviewing documentation, counseling the patient, and discussing with other team members." NORMA GUNN DO Feb 16, 2024 12:12
== END 2024-02-15 12:44 | disposition home or self-care (01) ==
LOC: LDRP 10:56 → UNDOADMOB 10:56 → LDRP 11:05 → UNDODISOB 12:44
PROVIDERS: ADMIT Obstetrics & Gynecology; ATTEND Obstetrics & Gynecology
DX: O48.0 Post-term pregnancy (principal); O36.63X0 Maternal care for excessive fetal growth, third trimester, not applicable or unspecified; Z3A.40 40 weeks gestation of pregnancy; Z79.899 Other long term (current) drug therapy
CPT/HCPCS: 59025; 76818; 81002; 94760; G0378

== ENCOUNTER 2024-02-16 04:30 | Inpatient (IN) | payer BC ==
[2024-02-15 12:53] LABS: Basophils # (auto) 0 10 ^3/uL (0-0.2); Basophils % (auto) 0.5 % (0.0-2.0); Eosinophils # (auto) 0.1 10 ^3/uL (0-0.8); Eosinophils % (auto) 0.5 % (0.0-7.0); Hematocrit 35.8 % (36.0-46.0); Hemoglobin 11.8 g/dL (12.2-16.2); Lymphocytes # (auto) 1.2 10 ^3/uL (0.4-5.4); Lymphocytes % (auto) 12.2 % (10.0-50.0); Mean Corpuscular Volume 88.1 fL (80.0-100.0); Monocytes # (auto) 0.7 10 ^3/uL (0-1.3); Monocytes % (auto) 6.5 % (0.0-12.0); Neutrophils # (auto) 8.1 10 ^3/uL (1.6-8.6); Neutrophils % (auto) 80.3 % (37.0-80.0); Nucleated Red Blood Cells % 0.2 %; Platelet Count (auto) 160 10^3/uL (140-450); Red Blood Cells 4.07 10^6/uL (4.0-5.20); Red Cell Distribution Width 16.3 % (11.8-14.3); White Blood Cell 10.1 10^3/uL (4.4-10.8)
[2024-02-15 13:08] LABS: Urine Bacteria FEW /hpf (None Seen); Urine Blood Negative /uL (Negative); Urine Clarity Clear (Clear); Urine Color Yellow (Yellow); Urine Protein, UAD TRACE (Negative); Urine Specific Gravity 1.024 (1.001-1.035); Urine Urobilinogen Normal (Negative); Urine WBC 2 /hpf (0 - 5); Urine pH 6.5 (5.0-9.0)
[2024-02-15 13:11] LABS: Alanine Aminotransferase 15 U/L (7-40); Albumin 3.6 g/dL (3.2-4.8); Alkaline Phosphatase 102 U/L (46-116); Anion Gap 6 (5-15); Aspartate Aminotransferase 19 U/L (13-40); BUN/Creatinine Ratio 21.4 (10.0-20.0); Blood Urea Nitrogen 9 mg/dL (9-23); Calcium 9.5 mg/dL (8.7-10.4); Carbon Dioxide 24 mmol/L (20-31); Chloride 106 mmol/L (98-107); Glucose 80 mg/dL (74-106); Potassium 3.9 mmol/L (3.5-5.1)
[2024-02-15 13:12] LABS: Bilirubin, Total 0.5 mg/dL (0.2-1.0); Total Protein 5.7 g/dL (5.7-8.2)
[2024-02-15 13:15] LABS: Sodium 136 mmol/L (136-145)
[2024-02-15 13:22] LABS: INR 0.94 (0.9-1.15); Partial Thromboplastin Time 25.8 SEC (24.5-34.5)
[2024-02-15 13:41] LABS: Amphetamine Screen, Urine Neg (NEGATIVE); Barbiturate Scree,Urine Neg (NEGATIVE); Benzodiazephine Screen, Urine Neg (NEGATIVE); Cannabinoid Screen, Urine Neg (NEGATIVE); Cocaine Screen, Urine Neg (NEGATIVE); Opiate Scree,Urine Neg (NEGATIVE); Phencyclidine Screen, Urine Neg (NEGATIVE)
--- NOTE | 2024-02-15 22:12 | DVHHP ---
ADMIT DATE: 02/16/2024 CHIEF COMPLAINT: Desires primary . HISTORY OF PRESENT ILLNESS: The patient is a 33-year-old 1, para 0 with EDC 02/11/2024, estimated gestational age of 40+ 5/7, admitted for primary . The patient underwent induction of labor last week during which she did really bad. She had a lot of anxiety, complained of a lot of back pain, did not want to be monitored, did not want any vaginal exam. Subsequently, she decided to go home and await natural labor. She then came back on Monday for routine OB check during which time estimated weight revealed baby's weight to be approximately 9+ pounds. All options were discussed with her, option of induction due to post date versus a primary due to possibility of shoulder dystocia, short term as well as long-term morbidity, mortality with macrosomia discussed with the patient. The patient decided that she wants to have primary . She does have a lot of anxiety regarding process of natural labor. Risks, complication, alternative options were all discussed with the patient. All questions answered. The patient fully understands. She wishes to proceed with a primary . PAST MEDICAL HISTORY: None. PAST SURGICAL HISTORY: None. SOCIAL HISTORY: None. FAMILY HISTORY: None. ALLERGIES: No known drug allergies. OBSTETRIC AND GYNECOLOGIC HISTORY: Blood type O positive, rubella immune, GBS positive. REVIEW OF SYSTEMS: Consistent with HPI. PHYSICAL EXAMINATION: VITAL SIGNS: Stable, afebrile. HEENT: Within normal limits. CARDIOVASCULAR: Regular rate and rhythm. LUNGS: Clear to auscultation. BREASTS: Symmetrical. No masses. ABDOMEN: Gravid. Positive heart, estimated weight 9+ to 10 pounds. PELVIC: Deferred per patient's request. EXTREMITIES: No clubbing, cyanosis or edema. IMPRESSION: * Intrauterine at 40+ 5/7 week for primary . * Macrosomia. PLAN: Primary low transverse section. Informed consent obtained. Risks, complication of surgery including infection, bleeding, hematoma formation, injury to bowel, bladder, and surrounding organs, possibility of DVT, pulmonary embolism, risk of anesthesia discussed with the patient. Options reviewed. Options reviewed. All questions answered. The patient wishes to proceed with planned procedure. Kathy Hutchins DO MZ/ALEXEY TID: [id number] RECEIPT: [id number]
[2024-02-16] VITALS (12 sets, daily range): BP systolic 117–148; BP diastolic 64–86; PULSE 77–109; RESP 18–20; TEMP 98–99.3; O2SAT 94–98
[~2024-02-16] VITALS: Ht 167.6 cm; Wt 94.3 kg
[2024-02-16] MEDS: LACTATED RINGER'S 1,000 ML IV SCH (06:00)
[2024-02-16] MEDS: METOCLOPRAMIDE HCL 5MG/ml INJ 2ml VIAL IV ONE (06:00)
[2024-02-16] MEDS: SODIUM CITR/CITRIC ACID ORAL SOLN 30 ML PO ONE (06:00)
[2024-02-16] MEDS: LACTATED RINGER'S 1,000 ML IV ONE (06:00)
[2024-02-16] MEDS ORDERED: MORPHINE SULF PF 5 MG/10 ML VIAL ONE (06:56)
[2024-02-16] MEDS ORDERED: oxyTOCIN 10 UNIT/ML 10ML VIAL ONE (06:57)
[2024-02-16] MEDS ORDERED: ONDANSETRON HCL 4 MG/2 ML VIAL ONE (06:57)
[2024-02-16] MEDS ORDERED: fentaNYL CITRATE 100 MCG/2 ML VL ONE (06:57)
[2024-02-16] MEDS: ceFAZolin 2 GM/D5W50ml 50 ML IV ONE (06:58)
[2024-02-16] MEDS ORDERED: ePHEDrine SULFATE 50 MG/ML AMP ONE (06:58)
[2024-02-16] MEDS ORDERED: PHENYLEPHRINE HCL 10 MG/ML VL ONE (07:28)
[2024-02-16] MEDS ORDERED: ceFAZolin 1GM/50ML 50 ML IV SCH (08:00)
[2024-02-16] MEDS ORDERED: ONDANSETRON HCL 4 MG/2 ML VIAL IV PRN (08:00)
[2024-02-16] MEDS: LACT. RINGERS/OXYTOCIN 20UNITS 1,000 ML IV ONE (08:00)
[2024-02-16] MEDS: GUM (CHEWING) 1 GUM CHEW CHEW ONE (08:00)
[2024-02-16 08:06] LABS: RPR Non Reactive (Non Reactive)
[2024-02-16] MEDS ORDERED: MEPERIDINE HCL (25 MG/ML) 1ML VIAL IV PRN (08:30)
[2024-02-16] MEDS ORDERED: ACETAMINOPHEN IV 1000 MG/100ML (10MG/ML) IV PRN (08:30)
[2024-02-16] MEDS ORDERED: HYDROmorphone HCL 2 MG/ML VL/or syr IV PRN (08:30)
[2024-02-16] MEDS: ONDANSETRON HCL 4 MG/2 ML VIAL IV ONE (08:30)
[2024-02-16] MEDS ORDERED: HYDR-4072 PO (10:40)
[2024-02-16] MEDS ORDERED: IBUP-1456 PO (10:40)
[2024-02-16] MEDS ORDERED: DOCU-94 PO (10:40)
[2024-02-16] MEDS ORDERED: ZOFR4T PO (10:40)
--- NOTE | 2024-02-16 10:44 | DVHOP2 ---
Operative Report DATE OF OPERATION: 02/16/24 PREOPERATIVE DIAGNOSES: iup at 40 +wks with failed induction,suspect macrosomia ,desires pcs,maternal anxiety POSTOPERATIVE DIAGNOSES: same SURGEON: Kathy Hutchins D.O./arnol ANESTHESIOLOGIST: mona TYPE OF ANESTHESIA : spinal CONSENT: The patient was informed of the risks and benefits of the procedure. The patient was informed of the risks and benefits of the procedure. These include but are not limited to , complications of anesthesia, postoperative infection, incomplete relief of symptoms, recurrence of symptoms, damage to blood vessels, nerves and tendons, deep venous thrombosis, pulmonary embolism and possible need for repeat surgery in the future. FINDINGS: Baby [f] with Apgars of [9] and [9]. Grossly normal appearing tubes and ovaries.wt 8-11 PROCEDURES: Primary low transverse section. PROCEDURE IN DETAIL: The patient was taken to the operating room. She already had an epidural in place. She was then placed in supine position with a leftward tilt. A Pfannenstiel skin incision was made 2 cm above the symphysis pubis. This incision was carried to the underlying layer of fascia. The fascia was nicked in the midline. The incision was extended laterally. The superior aspect of the fascial incision was grasped and elevated. The same procedure was done to the inferior aspect of the fascial incision. The rectus muscles were then in the midline. Peritoneum was identified and entered. Peritoneal incision was extended superiorly and inferiorly with good visualization of the bladder. Bladder blade was inserted. Vesicouterine peritoneum was identified and entered. Lower uterine segment was incised in a transverse fashion. The infant was delivered from vertex presentation. was baby [f] with Apgars [9] and [9]. Placenta was then removed manually. Uterus was exteriorized and cleared of all clots and debris. The incision was repaired using 0 Vicryl in a double-layered fashion. No b leeding was noted. Uterus was then returned to the abdomen. The gutters were cleared off all clots and debris. Peritoneum was closed using 0 Vicryl, fascia was closed using 0 Maxon, and skin was closed using naz. The patient tolerated the procedure well. She was taken to the recovery room in stable condition. ESTIMATED BLOOD LOSS: Estimated blood loss was noted to be 800 mL. KATHY HUTCHINS DO Feb 16, 2024 10:44
--- NOTE | 2024-02-16 10:46 | POSTOP ---
Post-Operative Note Post-Operative Note Preop Diagnosis iup at 40 +wks faile dinduction,suspect macrosmia,desires pcs ,mat anxiety Postop Diagnosis: same Operation performed pltcs Specimen baby girl,apgars 9-9 Anesthesia: Regional Anesthesiologist: mona Blood Loss(fluid mgmt) 800ml Surgeon Norma Hutchins Petroleum Engineer arnol Implant na Complications & Mgmt none Date 02/16/24 Time 10:44 NORMA HUTCHINS DO Feb 16, 2024 10:46
[2024-02-16] MEDS: diphenhdrAMINE HCL 50 MG/1 ML VL IV PRN (10:59)
[2024-02-16] MEDS: ceFAZolin 1GM/50ML 50 ML IV SCH (14:35)
[2024-02-16] MEDS: ACETAMINOPHEN IV 1000 MG/100ML (10MG/ML) IV PRN (16:07)
[2024-02-16 21:38] LABS: Basophils # (auto) 0 10 ^3/uL (0-0.2); Basophils % (auto) 0.2 % (0.0-2.0); Eosinophils # (auto) 0.1 10 ^3/uL (0-0.8); Eosinophils % (auto) 0.6 % (0.0-7.0); Hematocrit 30.6 % (36.0-46.0); Hemoglobin 10.1 g/dL (12.2-16.2); Lymphocytes # (auto) 1.2 10 ^3/uL (0.4-5.4); Lymphocytes % (auto) 11.9 % (10.0-50.0); Mean Corpuscular Hemoglobin 29.1 pg (28.0-32.0); Mean Corpuscular Volume 88.1 fL (80.0-100.0); Monocytes # (auto) 0.6 10 ^3/uL (0-1.3); Monocytes % (auto) 5.9 % (0.0-12.0); Neutrophils # (auto) 7.9 10 ^3/uL (1.6-8.6); Neutrophils % (auto) 81.4 % (37.0-80.0); Platelet Count (auto) 154 10^3/uL (140-450); Red Blood Cells 3.48 10^6/uL (4.0-5.20); Red Cell Distribution Width 16.4 % (11.8-14.3); White Blood Cell 9.7 10^3/uL (4.4-10.8)
[2024-02-16] MEDS: KETOROLAC TROMETH 30 MG/ML 1ML VIAL IV PRN (22:33)
[2024-02-17 02:55] VITALS: BP 131/83; PULSE 95; RESP 20; TEMP 97.9; O2SAT 95
[2024-02-17] MEDS ORDERED: BISACODYL 10 MG RECT SUPP PR PRN (06:15)
[2024-02-17] MEDS ORDERED: HYDROcodone-ACET 5/325MG TAB PO PRN (06:15)
--- NOTE | 2024-02-17 07:06 | DVHPN2 ---
Progress Note Date Seen: Feb 17, 2024 Subjective POD#1 s/p 1' C/S for macrosomia S: Pain controlled lochia mild. No acute complaints. vital signs Vital Sign Date Time Temp Pulse Resp B/P (MAP) Pulse Ox O2 Delivery O2 Flow Rate FiO2 02/17/24 06:53 Room Air 02/17/24 02:55 97.9 95 20 131/83 (99) 95 97.9 Total Intake and Output 02/16/24 02/16/24 02/17/24 15:00 23:00 07:00 Output Total 105 ml 4600 ml 4500 ml Balance -105 ml -4600 ml -4500 ml medications Current Medications Medications Dose Ordered Sig/Cirilo Route Start Time Stop Time Status Last Admin Dose Admin Lactated Ringer's 1,000 ml @ 125 mls/hr Q8H IV 02/16/24 06:00 02/16/24 14:36 125 MLS/HR Ondansetron HCl 4 mg Q4HP PRN IV 02/16/24 08:00 Cefazolin Sodium 50 ml @ 100 mls/hr Q8H IV 02/16/24 15:00 02/17/24 07:29 02/16/24 23:09 100 MLS/HR Diphenhydramine HCl 25 mg Q4HP PRN IV 02/16/24 10:30 02/16/24 10:59 25 MG Ketorolac Tromethamine 30 mg Q6HPRN PRN IV 02/16/24 21:15 02/21/24 21:14 02/16/24 22:33 30 MG Docusate Calcium 240 mg DAILY PO 02/17/24 10:00 Docusate Sodium 100 mg Q12HR PO 02/17/24 10:00 Dimethicone 80 mg QID PO 02/17/24 12:00 Bisacodyl 10 mg DAILYP PRN AL 02/17/24 06:15 Ibuprofen 800 mg Q8HP PRN PO 02/17/24 06:15 Acetaminophen/ Hydrocodone Bitart 1 tab Q4HPRN PRN PO 02/17/24 06:15 Acetaminophen/ Hydrocodone Bitart 2 tab Q4HPRN PRN PO 02/17/24 06:15 laboratory and microbiology Laboratory Tests 02/16/24 20:54 02/15/24 12:35 Test 02/15/24 12:35 Range/Units Serum Glucose 80 74-106 mg/dL Objective O: AFVSS Chest: heart and lung sounds normal. Abd soft, non-tender, fundus firm, BS, no rebound or guarding, Incision - dressing and incision clean, dry, intact Ext Neg Homans, Non-tender, edema Lochia - minimal Labs Reviewed Assessment/Plan POD#1 s/p 1' C/S doing well Continue supportive care Advance orders pain control Plan discussed with: Patient, Spouse LOTTIE NAJERA DO Feb 17, 2024 07:06
[2024-02-17 07:49] VITALS: BP 124/80; PULSE 110; RESP 20; TEMP 98.7; O2SAT 95
--- NOTE | 2024-02-17 07:54 | DVHDS2 ---
Physician Discharge Progress N Final Diagnosis: Primary C/Section delivery Secondary Diagnosis: macrosomia Operations or Procedures: Operations or Procedures Primary C/Section low transverse Commentary: Commentary Normal course uncomplicated Condition on Discharge: Stable Disposition: Home Discharge Instructions: Diet: Regular Activity: Light activity Activity comment: Pelvic rest x 6 weeks Follow Up/Referral: [address] Hutch[address] Medications: see eRx Follow Up Care: Discharge Statement: "Patient was advised to return to the ER or call 911 if any headaches, dizziness, shortness of breath, chest pain, abdominal pain, bleeding, fevers, or worsening of medical condition. Patient was counseled about treatment plan, medications, possible side effects, patientverbalized understanding. All questions were answered to the best of my ability. This discharge took greater then 30 minutes in planning, reviewing doc umentation, counseling the patient, and discussing with other team members." LOTTIE NAJERA DO Feb 17, 2024 07:54
[2024-02-17 08:06] LABS: Basophils # (auto) 0 10 ^3/uL (0-0.2); Basophils % (auto) 0.2 % (0.0-2.0); Eosinophils # (auto) 0 10 ^3/uL (0-0.8); Eosinophils % (auto) 0.4 % (0.0-7.0); Hematocrit 31.5 % (36.0-46.0); Hemoglobin 10.4 g/dL (12.2-16.2); Lymphocytes # (auto) 0.9 10 ^3/uL (0.4-5.4); Mean Corpuscular Volume 87.9 fL (80.0-100.0); Monocytes # (auto) 0.4 10 ^3/uL (0-1.3); Monocytes % (auto) 3.4 % (0.0-12.0); Neutrophils # (auto) 10.3 10 ^3/uL (1.6-8.6); Platelet Count (auto) 145 10^3/uL (140-450); Red Blood Cells 3.59 10^6/uL (4.0-5.20); Red Cell Distribution Width 16.7 % (11.8-14.3); White Blood Cell 11.8 10^3/uL (4.4-10.8)
[2024-02-17] MEDS: HYDROcodone-ACET 5/325MG TAB PO PRN (08:12)
[2024-02-17] MEDS: DOCUSATE CALCIUM 240 MG CAP PO SCH (10:00)
[2024-02-17] MEDS: DOCUSATE SOD 100 MG CAP PO SCH (10:00)
[2024-02-17 11:30] VITALS: BP 121/79; PULSE 110; RESP 20; TEMP 98.2; O2SAT 95
[2024-02-17] MEDS: IBUPROFEN 800 MG TAB PO PRN (11:36)
[2024-02-17] MEDS: SIMETHICONE 80 MG CHEWABLE TABLET PO SCH (11:36)
[2024-02-19 11:06] LABS: Treponema Pallidum Ab LC Reactive (Non Reactive)
== END 2024-02-17 13:45 | disposition home or self-care (01) | DRG 788 ==
LOC: LDRP 04:30 → EEVIPCON 04:30 → LDRP 04:31
PROVIDERS: ADMIT Obstetrics & Gynecology; ATTEND Obstetrics & Gynecology
PROC: 10D00Z1 Extraction of Products of Conception, Low, Open Approach (ICD-10-PCS; principal; 2024-02-16 07:03)
DX: O48.0 Post-term pregnancy (principal); O99.344 Other mental disorders complicating childbirth; O36.63X0 Maternal care for excessive fetal growth, third trimester, not applicable or unspecified; F41.9 Anxiety disorder, unspecified; O61.9 Failed induction of labor, unspecified; Z3A.40 40 weeks gestation of pregnancy; Z37.0 Single live birth
CPT/HCPCS: 36415; 59025; 80053; 80307; 81001; 81002; 85025; 85610; 85730; 86592; 86780; 86850; 86900; 86901; 94760; 94762; 96360; 96365; 96366; G0378; J0131; J1885; J2405; J2590

== ENCOUNTER 2024-11-25 07:54 | Outpatient (CLI) | payer BC ==
[~2024-11-25 07:54] MED LIST: DOCU-94 PO; HYDR-4072 PO; IBUP-1456 PO; ZOFR4T PO
[2024-11-25 08:07] LABS: Hematocrit 40.3 % (36.0-46.0); Hemoglobin 13.8 g/dL (12.2-16.2); Mean Corpuscular Hemoglobin 29.7 pg (28.0-32.0); Mean Corpuscular Volume 86.5 fL (80.0-100.0); Nucleated Red Blood Cells % 0.1 %
[2024-11-25 08:20] LABS: Urine Protein, UAD Negative (Negative)
[2024-11-25 08:26] LABS: Alanine Aminotransferase 11 U/L (7-40); Albumin 4.3 g/dL (3.2-4.8); Alkaline Phosphatase 48 U/L (46-116); Anion Gap 10 (5-15); BUN/Creatinine Ratio 10.9 (10.0-20.0); Calcium 9.2 mg/dL (8.7-10.4); Carbon Dioxide 24 mmol/L (20-31); Chloride 103 mmol/L (98-107); Glucose 92 mg/dL (74-106); Potassium 3.9 mmol/L (3.5-5.1); Sodium 137 mmol/L (136-145); Total Protein 7.2 g/dL (5.7-8.2); Triglycerides 96 mg/dL (< 150)
[2024-11-25 08:27] LABS: Bilirubin, Total 0.9 mg/dL (0.2-1.0); Cholesterol 166 mg/dL (< 200)
[2024-11-25 08:28] LABS: Blood Urea Nitrogen 6 mg/dL (9-23); HDL Cholesterol 70 mg/dL (40-59)
[2024-11-25 10:18] LABS: Free T4 (Free Thyroxine) 1.35 ng/dL (0.89-1.76)
[2024-11-25 10:21] LABS: Follicle Stimulating Hormone 0.05 IU/L (SEE BELOW)
== END 2024-11-25 17:00 | disposition home or self-care (01) ==
LOC: LAB 07:54
PROVIDERS: ATTEND Internal Medicine
DX: O92.4 Hypogalactia (principal); N91.1 Secondary amenorrhea; R55 Syncope and collapse; Z00.01 Encounter for general adult medical examination with abnormal findings
CPT/HCPCS: 36415; 80053; 80061; 81001; 82670; 83001; 83002; 83036; 84144; 84146; 84403; 84439; 84443; 85025

== ENCOUNTER 2024-11-27 07:55 | Outpatient (CLI) | payer BC | END 2024-11-27 17:00 | disposition home or self-care (01) | LOC: LAB 07:55 | PROVIDERS: ATTEND Internal Medicine | DX: Z32.01 Encounter for pregnancy test, result positive (principal) | CPT/HCPCS: 36415; 84702 ==

== ENCOUNTER → 2024-12-04 | Outpatient (CLI) | payer BC ==
[2024-12-04 08:16] LABS: Hematocrit 39.4 % (36.0-46.0); Hemoglobin 13.5 g/dL (12.2-16.2); Mean Corpuscular Hemoglobin 29.9 pg (28.0-32.0); Mean Corpuscular Volume 87.3 fL (80.0-100.0); Nucleated Red Blood Cells % 0.1 %
[2024-12-04 08:41] LABS: Amphetamine Screen, Urine Neg (NEGATIVE); Barbiturate Scree,Urine Neg (NEGATIVE); Benzodiazephine Screen, Urine Neg (NEGATIVE); Cannabinoid Screen, Urine Neg (NEGATIVE); Cocaine Screen, Urine Neg (NEGATIVE); Opiate Scree,Urine Neg (NEGATIVE); Phencyclidine Screen, Urine Neg (NEGATIVE)
[2024-12-05 16:07] LABS: Chlamydia Trachomatis, NAA Negative (Negative); Neisseria gonorrhoeae, NAA Negative (Negative)
== END | disposition home or self-care (01) ==
LOC: LAB 07:37
PROVIDERS: ATTEND Obstetrics & Gynecology
DX: Z11.3 Encounter for screening for infections with a predominantly sexual mode of transmission (principal); Z72.51 High risk heterosexual behavior
CPT/HCPCS: 36415; 80307; 84144; 84702; 85025; 86703; 86762; 86780; 86850; 86900; 86901; 87086; 87340